=== PATIENT | male | born 1950 | race American Indian/Alaskan Native ===

== ENCOUNTER 2023-07-03 16:41 | Emergency (ER) | payer MEDICARE, SELFPAY ==
--- NOTE | ~2023-07-03 | US_ITS ---
EXAMINATION: US VENOUS ULTRASOUND WITH DOPPLER LOWER EXTREMITY, RIGHT CLINICAL INFORMATION: Pain, swelling and redness. COMPARISON: None available. TECHNIQUE: Ultrasound of the deep veins is performed from the hip to the calf with compression sonography and color and pulse Doppler assessment. Spectral analysis with color-flow imaging is performed. FINDINGS: There is normal venous compression and respiratory variation and augmented flow. The visualized common femoral vein, superficial femoral vein, profunda femoral vein, popliteal vein, and the trifurcation region shows no evidence of deep venous thrombosis. There is no significant popliteal fossa cyst. If the patient's symptoms persist, followup ultrasound in 5 days 7 days might be of value to exclude proximal propagation from a non-visualized calf vein. US/US venous duplex LE RT IMPRESSION: No DVT demonstrated in the right lower extremity.
[2023-07-03 16:47] VITALS: BP 124/83; PULSE 82; RESP 18; TEMP 37; O2SAT 96; BMI 27.3
--- NOTE | 2023-07-03 16:52 | ED.EXTPRO ---
HPI - Extremity Problem General Chief complaint: Extremity Injury, Lower Stated complaint: right foot pain, no injury Time Seen by Provider: 07/03/23 20:35 Source: patient Mode of arrival: ambulatory Limitations: no limitations History of Present Illness HPI Narrative: Patient no significant past medical history no history of gout noticed pain and redness of the right leg for last 4 -5 days painful to touch no fever no chills no history of gout 2 history of similar pain in the past no open wound patient had venous Doppler done prior to my evaluation which was normal Related Data Previous Rx's Medication Instructions Recorded cephalexin 500 mg capsule 500 mg PO QID 10 days #40 caps 07/03/23 doxycycline hyclate 100 mg tablet 100 mg PO BID #20 tabs 07/03/23 ibuprofen 600 mg tablet 600 mg PO Q6-8H PRN pain #30 tabs 07/03/23 Allergies Allergy/AdvReac Type Severity Reaction Status Date / Time No Known Allergies Allergy Verified 07/03/23 16:47 Review of Systems Review of Systems: Yes all other systems are reviewed and are negative [facility] Social History Social History Alcohol intake: unknown Smoked in Last 30 Days: No Use of substances other than those prescribed or required for medical reasons: Unknown Advance Directives: No Advance Directives Information Provided: No Physical Exam Vital Signs: Vital Signs: Last Vital Signs Temp 98.3 F 07/03/23 21:26 Pulse 79 07/03/23 21:26 Resp 17 07/03/23 21:26 BP 109/73 07/03/23 21:26 Pulse Ox 98 07/03/23 21:26 O2 Del Method Room Air 07/03/23 21:26 BMI result Body Mass Index 27.3 Appearance: Alert. Oriented X3. No acute distress. ENT: Pharynx normal. Oral Mucosa moist Neck: Normal inspection. Neck supple. CVS: Normal heart rate and rhythm. Pulses normal. Respiratory: No respiratory distress. Equal air entry bilateral, no wheezing/rales/rhonchi Abdomen: Soft and nontender. Bowel sounds are present, no mass palpable, no CVA tenderness Skin: Skin warm and dry. Normal skin color. Normal skin turgor. Extremities: No lower extremity edema. No calf tenderness swelling of the right leg with erythema Francis sign negative no open wound Neuro: Oriented X 3. No motor deficit. No sensory deficit. Course Course Course Narrative: RME - 72 yo Faroese speaking male presenting to the ER for evaluation of non-trauamtic RLE swelling, redness and pain for the last 4 days. No fever or chills. Plan: Labs and U/S to r/o DVT Medications Administered Discontinued Medications Generic Name Dose Route Start Last Admin Trade Name Freq PRN Reason Stop Dose Admin Cephalexin HCl 500 mg 07/03/23 20:41 07/03/23 21:03 Cephalexin 500 Mg Capsule PO 07/03/23 20:42 500 mg ONCE ONE Administration Doxycycline Monohydrate 100 mg 07/03/23 20:41 07/03/23 21:03 Doxycycline Monohydrate 100 Mg Capsule PO 07/03/23 20:42 100 mg ONCE ONE Administration Ibuprofen 600 mg 07/03/23 20:48 07/03/23 21:03 Ibuprofen 600 Mg Tablet PO 07/03/23 20:49 600 mg ONCE ONE Administration Medical Decision Making Medical Decision Making [facility] Narrative: Patient with redness of the right legs clinically cellulitis venous Doppler was done which was negative bite counts are normal no history of gout or arthritis will give a trial of doxycycline and Keflex Differential Diagnosis Differential Diagnoses: The differential diagnosis associated with the presentation includes Cellulitis/erysipelas/DVT/dependent edema/CHF Lab Data [facility] Lab Attestation statement: I reviewed the patient's lab results. 07/03/23 17:15 07/03/23 17:15 Labs: Lab Results 07/03/23 Range/Units 17:15 WBC 7.0 (4.8-10.8) X10*3/uL RBC 4.69 (4.60-5.80) X10*6/uL Hgb 13.5 L (14.0-18.0) g/dl Hct 41.0 L (42.0-52.0) % MCV 87.4 (80.0-98.0) fL MCH 28.8 (27.0-33.0) pg MCHC 32.9 (31.0-36.0) g/dl RDW 12.3 (11.0-16.0) % Plt Count 233 (160-400) X10*3/uL MPV 9.5 (9.4-12.4) fL Immature Gran % (Auto) 0.4 (0.0-0.4) % Neut % (Auto) 65.7 (45-73) % Lymph % (Auto) 23.7 (20-40) % Bremer % (Auto) 8.8 (2-11) % Eos % (Auto) 1.0 (0-4) % Baso % (Auto) 0.4 (0-2) % Lymph # (Auto) 1.7 (1.2-4.9) X10*3/uL Bremer # (Auto) 0.6 (0.1-1.2) X10*3/uL Eos # (Auto) 0.1 (0.0-0.4) X10*3/uL Baso # (Auto) 0.0 (0.0-0.2) X10*3/uL Abs Immat Gran (auto) 0.03 (0.00-0.03) X10*3/uL Absolute Neuts (auto) 4.6 (2.0-8.3) x10*3/uL Absolute Nucleated RBC 0.000 (0.0-0.012) X10*3/uL Nucleated RBC % (auto) 0.0 (0.0-0.2) /100WBC ESR 25 H (0-15) MM/HR Sodium 141 (135-145) mmol/L Potassium 4.6 (3.3-5.1) mmol/L Chloride 106 (96-108) mmol/L Carbon Dioxide 27 (22-29) mmol/L Anion Gap 13 (12-20) BUN 19 H (9-16) mg/dL Creatinine 1.17 (0.5-1.4) mg/dL Estim Creat Clear Calc 55.3 Estimated GFR > 60 Random Glucose 93 (60-115) mg/dL Calcium 11.0 H (8.4-10.2) mg/dL Magnesium 1.7 (1.6-2.6) mg/dL Total Bilirubin 0.5 (0.0-1.0) mg/dL Direct Bilirubin 0.3 (0.0-0.5) mg/dL AST 33 (5-37) U/L ALT 20 (0-40) U/L Alkaline Phosphatase 69 (39-117) U/L C-Reactive Protein 5.48 H (< or = 0.50) mg/dL Total Protein 7.7 (6.5-8.0) g/dL Albumin 4.4 (3.5-5.0) g/dL Discharge Plan Discharge Clinical Impression: Cellulitis Patient Disposition: Home, Self-Care Instructions: Cellulitis (ED) Additional Instructions: Keep your legs elevated Take antibiotic as prescribed Follow up with PCP if not better Prescriptions: New cephalexin 500 mg capsule 500 mg PO QID 10 Days Qty: 40 0RF doxycycline hyclate 100 mg tablet 100 mg PO BID Qty: 20 0RF ibuprofen 600 mg tablet 600 mg PO Q6-8H PRN (Reason: pain) Qty: 30 0RF Interventions: ED Discharge Assessment Last Done: 07/03/23 21:53 Discharge Date/Time: 07/03/23 21:54 Print Language: Faroese
[2023-07-03 17:21] LABS: MANUAL DIFF FLAG NO
[2023-07-03 17:23] LABS: Basophils Percent Auto 0.4 % (0-2); Eosinophils Absolute Auto 0.1 X10*3/uL (0.0-0.4); Hemoglobin 13.5 g/dl (14.0-18.0); Imm Gran Abs Auto 0.03 X10*3/uL (0.00-0.03); Imm Gran Pct Auto 0.4 % (0.0-0.4); Lymphocytes Absolute Auto 1.7 X10*3/uL (1.2-4.9); Lymphocytes Percent Auto 23.7 % (20-40); Mean Corpuscular HGB Conc 32.9 g/dl (31.0-36.0); Mean Corpuscular Hemoglobin 28.8 pg (27.0-33.0); Mean Corpuscular Volume 87.4 fL (80.0-98.0); Mean Platelet Volume 9.5 fL (9.4-12.4); Monocytes Absolute Auto 0.6 X10*3/uL (0.1-1.2); Monocytes Percent Auto 8.8 % (2-11); Neutrophils Absolute Auto 4.6 x10*3/uL (2.0-8.3); Neutrophils Percent Auto 65.7 % (45-73); Platelet Count 233 X10*3/uL (160-400); Red Blood Count 4.69 X10*6/uL (4.60-5.80); Red Cell Distribution Width 12.3 % (11.0-16.0)
[2023-07-03 17:37] LABS: Alanine Aminotransferase 20 U/L (0-40); Albumin Level 4.4 g/dL (3.5-5.0); Alkaline Phosphatase 69 U/L (39-117); Anion Gap 13 (12-20); Aspartate Amino Transferase 33 U/L (5-37); Bilirubin Direct 0.3 mg/dL (0.0-0.5); Bilirubin Total 0.5 mg/dL (0.0-1.0); Blood Urea Nitrogen 19 mg/dL (9-16); C Reactive Protein 5.48 mg/dL (< or = 0.50); Carbon Dioxide 27 mmol/L (22-29); Chloride 106 mmol/L (96-108); Creatinine Clr Calc Pharmacy 55.3; Estimated Glomerular Filt Rate > 60; Glucose Random 93 mg/dL (60-115); Magnesium 1.7 mg/dL (1.6-2.6); Potassium 4.6 mmol/L (3.3-5.1); Sodium 141 mmol/L (135-145); Total Protein 7.7 g/dL (6.5-8.0)
[2023-07-03 18:29] LABS: Erythrocyte Sedimentation Rate 25 MM/HR (0-15)
--- NOTE | 2023-07-03 20:21 | PC.NURSE ---
Pt called @2019 no answer
[2023-07-03] MEDS: Ibuprofen 600 MG TABLET PO (21:03)
[2023-07-03] MEDS: cephALEXin 500 MG CAPSULE PO (21:03)
[2023-07-03] MEDS: Doxycycline Monohydrate 100 MG CAPSULE PO (21:03)
--- OUTSIDE RECORDS SUMMARY | 2023-07-03 21:23 | XMS_ITS | Continuity of Care Document ---
Author Name Unknown Organization [facility] Address [address] [place] [id number]- Care Team Providers Care Survey Compiler Name Role Phone Francoise Colon Primary Care Physician [place] [facility] [place] [facility] [place] - 05/22/21 [facility] [address] [place] [id number] Attending Physician: Jesu Shirley Admitting Physician: Jesu Shirley Referring Physician: AdmtrJesu Allergies, Adverse Reactions, Alerts Substance Reaction Severity Status NKA Active Medications acetaminophen 325 mg oral tablet 650 mg, By Mouth, Every 4 hours, PRN, Refills 0, Maintenance, Pain , Mild, 02/16/16 12:44:33 Start Date: 02/16/16 Status: Ordered Aspirin Enteric Coated 325 mg oral delayed release tablet 1 tablet = 325 mg, By Mouth, Daily, # 30 tablet, 0 Refills, Maintenance, 02/16/16 12:43:05 Start Date: 02/16/16 Status: Ordered CBC with diff, Chem &, AST, ALT CBC with diff, Chem &, AST, ALT, See Instructions, # 1 each, Refills 0, Tot. Refills 0, Maintenance, Please do weekly x 6 weeks; send results to Dr. Glass ([facility] [place]) and [facility] ([facility], 02/16/16 12:50:34, Compound Start Date: 02/16/16 Status: Ordered cholecalciferol 1000 intl units oral tablet = 1,000 International_Units, By Mouth, Daily, # 30 tablet, 0 Refills, Maintenance, 10/15/15 11:50:12, Tablet Start Date: 10/15/15 Stop Date: 11/14/15 Status: Ordered docusate sodium 100 mg oral capsule 1 capsule = 100 mg, By Mouth, 2 times a day, # 60 capsule, 0 Refills, Maintenance, 10/15/15 11:51:06, Capsule Start Date: 10/15/15 Status: Ordered enalapril 10 mg oral tablet 1 tablet = 10 mg, By Mouth, Daily, Maintenance, 06/03/15 10:32:08, Tablet Start Date: 06/03/15 Status: Ordered Levaquin 750 mg oral tablet 1 tablet = 750 mg, By Mouth, Every 24 hours, for 6 week(s), # 42 tablet, 0 Refills, Acute 03/29/16 12:46:57, 02/16/16 12:46:57, Tablet Start Date: 02/16/16 Stop Date: 03/29/16 Status: Ordered MiraLax oral powder for reconstitution = 17 Gm, By Mouth, Daily, PRN Constipation, dissolve in water before taking, # 255 Gm, 0 Refills, Maintenance, 10/15/15 11:51:25, REC Powder Start Date: 10/15/15 Status: Ordered oxyCODONE 5 mg oral tablet See Instructions, PRN, 1-2 tablets By Mouth Every 4-6 hours, # 60 capsule, Refills 0, Tot. Refills 0, Maintenance, Pain , Moderate, 02/16/16 12:45:11, Instructions Replace Required Details, Print Requisition Start Date: 02/16/16 Status: Ordered rifampin 300 mg oral capsule 1 capsule = 300 mg, By Mouth, 2 times a day, for 6 week(s), Take with food either in AM or PM; May change color of urine to orange/red which is normal, # 84 capsule, 0 Refills, Acute 03/29/16 12:47:27, 02/16/16 12:47:27 Start Date: 02/16/16 Stop Date: 03/29/16 Status: Ordered Synthroid 0.05 mg oral tablet 1 tablet = 50 mcg, By Mouth, Daily, Maintenance, 06/03/15 10:31:46, Tablet Start Date: 06/03/15 Status: Ordered Social History Social History Type Response Smoking Status Never smoker; Tobacc o user in household: No entered on: 11/24/15 Sex
--- OUTSIDE RECORDS SUMMARY | 2023-07-03 21:23 | XMS_ITS | Continuity of Care Document ---
Author Name Unknown Organization [facility] Address [address] [place] [id number]- Care Team Providers Care Personal Loan Specialist Name Role Phone Francoise Colon Primary Care Physician [phone] [place] [facility] [place] - 05/22/21 [facility] [address] [place] [id number] Attending Physician: Not on Staff, Attending MD Referring Physician: Francoise Colon Allergies, Adverse Reactions, Alerts Substance Reaction Severity [...] 6 weeks; send results to Dr. Glass ([facility]) and Dr. Rosas ([facility])., 02/16/16 12:50:34, Compound Start Date: [...]
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
[2023-07-03 21:26] VITALS: BP 109/73; PULSE 79; RESP 17; TEMP 36.8; O2SAT 98
== END 2023-07-03 21:54 | disposition home or self-care (01) ==
PROVIDERS: Physician Assistant; Emergency Provider Internal Medicine
DX: L03.115 Cellulitis of right lower limb (principal); L03.116 Cellulitis of left lower limb; R60.0 Localized edema; Z79.899 Other long term (current) drug therapy
CPT/HCPCS: 36415; 80048; 80076; 83735; 85025; 85652; 86140; 93971; 99284

== ENCOUNTER 2024-03-26 11:31 | Emergency (ER) | payer MEDICARE, SELFPAY ==
[2024-03-26 11:42] VITALS: BP 127/89; BP 134/76; PULSE 72; PULSE 76; RESP 20; TEMP 36.6; O2SAT 95; O2SAT 98; BMI 29.9
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
[2024-03-26 15:26] VITALS: BP 135/75; PULSE 85; RESP 20; TEMP 36.6; O2SAT 100
== END 2024-03-26 15:27 | disposition home or self-care (01) ==
PROVIDERS: Emergency Provider Emergency Medicine; PCP Physician Assistant
DX: S09.90XA Unspecified injury of head, initial encounter (principal); M54.50 Low back pain, unspecified; R51.9 Headache, unspecified; W05.1XXA Fall from non-moving nonmotorized scooter, initial encounter; Y93.9 Activity, unspecified; Y92.410 Unspecified street and highway as the place of occurrence of the external cause; Y99.8 Other external cause status
CPT/HCPCS: 99283; 99284

== ENCOUNTER 2024-11-06 10:39 | Emergency (ER) | payer OTHER, SELFPAY ==
--- NOTE | ~2024-11-06 | CT_ITS ---
EXAMINATION: CT CERVICAL SPINE WITHOUT CONTRAST CLINICAL INFORMATION: Fall, head strike. COMPARISON: None available. TECHNIQUE: Axial 3 mm thin and reformatted 2 mm thin sagittal and coronal images of cervical spine were obtained. This CT examination was performed using dose optimization techniques as appropriate, variously including the following: *Automated exposure control *Adjustment of mA and/or kV according to patient size (this includes techniques or standardized protocols for targeted exams where dose is matched to indication/reason for exam; i.e. extremities or head) *Use of iterative reconstruction technique DLP: 1033 mGy/cm. FINDINGS: On sagittal reconstructed images there is maintained cervical lordosis. The vertebral heights, alignment and disc heights are normal. The craniovertebral junction and C1-C2 alignment is normal. There is no visible acute fracture, dislocation or subluxation. There is mild bilateral C3-4 moderate left C4-5, right C5-6 facet joint arthropathy and hypertrophy. There is mild left C3-4, C4-5 and bilateral C5-6 neural foraminal narrowing. The tracheal airway is widely patent. The prevertebral soft tissues are normal. Thyroid lobes are symmetrical and normal. The lung apices are clear CT/CT cervical spine wo IV con IMPRESSION: No acute fracture or dislocation cervical spine. Mild DJD. Fleischner guidelines were followed. Electronically signed by: Danyel Canales MD 11/06/2024 01:11 PM [facility]OE
--- NOTE | ~2024-11-06 | XR_ITS ---
Examination: Right hip and AP pelvis. 3 views. CLINICAL INDICATION: Pain. COMPARISON: None. FINDINGS: AP pelvis: There is a right intramedullary femoral janelle and 2 screws traversing the femoral neck stabilizing old healed fracture. There is no recurrent fracture seen involving the right hip. The left hip and the visualized rest the pelvis is unremarkable. Incidental finding of mild DJD L4-5 disc level. Right hip: There is a short intramedullary femoral janelle and 2 screws through the right femoral neck stabilizing the janelle and femoral neck fracture. There is no periprosthetic fracture. No dislocation. No loose bodies. No joint effusion or soft tissue swelling. XR/XR hip RT w PEL 1V IMPRESSION: Unremarkable right hip exam. The hardware is stable. The pelvic exam is unremarkable. Electronically signed by: Danyel Canales MD 11/06/2024 11:41 AM [facility]
--- NOTE | ~2024-11-06 | CT_ITS ---
EXAMINATION: CT HEAD WITHOUT CONTRAST CLINICAL INFORMATION: Fall, head strike COMPARISON: None available. TECHNIQUE: Contiguous axial imaging was performed from the skull base to vertex without intravenous administration of contrast. This CT examination was performed using dose optimization techniques as appropriate, variously including the following: *Automated exposure control *Adjustment of mA and/or kV according to patient size (this includes techniques or standardized protocols for targeted exams where dose is matched to indication/reason for exam; i.e. extremities or head) *Use of iterative reconstruction technique DLP: 1033 mGy/cm FINDINGS: There is no acute intra-axial, extra-axial bleed, collection or midline shift. No acute infarction in evolution seen. The dotson to white matter differences maintained normal. The lateral ventricles are symmetrical in size and appears normal for patient's age. No abnormality seen in the posterior fossa. Bone windows reveal no calvarial abnormality. Bilateral paranasal sinuses and mastoid air cells are well-aerated. There is mild deviation of nasal septum to the right there is no scalp soft tissue abnormality seen. CT/CT head/brain wo IV con IMPRESSION: No acute intracranial process seen. Electronically signed by: Danyel Canales MD 11/06/2024 01:23 PM [facility]
--- NOTE | 2024-11-06 10:54 | ED_ITS ---
HPI - Fall General Chief Complaint: Fall Stated Complaint: [facility] FALL,-HS,-LOC,-THIN, PER EMS Time Seen by Provider: 11/06/24 10:53 Source: patient and RN notes reviewed Mode of arrival: EMS Limitations: no limitations History of Present Illness ED Provider: Elva Crawley PA-C HPI Narrative: This is a 73-year-old Marshallese-speaking male, with a history of hypertension, gout, low back pain, who presents emergency department via EMS after mechanical fall which occurred just prior to arrival. Patient was at the [id number] playing pool when he was saying hello to oneof his friends who is in a wheelchair, and his foot got stuck in a wheelchair, and he ultimately fell onto his right hip. He is unsure if he hit his head. Denies LOC. 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 He is not on anticoagulation. Denies any current headache, dizziness, blurred vision, neck pain, chest pain, shortness of breath, abdominal pain, nausea, vomiting or diarrhea. No other complaints or concerns at this time. complaint: fall Onset (ago): hour(s) Fall from: standing Fall witnessed: yes, by bystander Place fall occurred: other ([facility]) Loss of consciousness: none Prolonged down time: minute(s) Symptoms prior to fall: none Context: tripped/slipped Severity: moderate Quality: aching Associated symptoms (after fall): denies Related Data Previous Rx's ?Medication ?Instructions ?Recorded cephalexin 500 mg capsule 500 mg PO QID 10 days #40 caps 07/03/23 doxycycline hyclate 100 mg tablet 100 mg PO BID #20 tabs 07/03/23 ibuprofen 600 mg tablet 600 mg PO Q6-8H PRN pain #30 tabs 07/03/23 Allergies Allergy/AdvReac Type Severity Reaction Status Date / Time No Known Allergies Allergy Verified 11/06/24 11:06 Review of Systems Review of Systems: Yes all other systems are reviewed and are negative Constitutional: Constitutional: Reports as per [facility] Social History Social History Alcohol intake: unknown Advance Directives: No Advance Directives Information Provided: Yes Physical Exam Vital Signs: Vital Signs: Last Vital Signs Temp 97.7 F 01/22/25 14:24 Pulse 68 11/06/24 14:24 Resp 18 11/06/24 14:24 BP 150/87 H 11/06/24 14:24 Pulse Ox 100 11/06/24 14:24 O2 Del Method Room Air 11/06/24 14:24 BMI result Body Mass Index 26.9 Const: General: cooperative, comfortable and no acute distress Orientation/consciousness: patient oriented x3 Limitations: no limitations HEENT: Head: Yes normal to inspection, Yes normocephalic and Yes atraumatic Ears: hearing grossly normal bilaterally General nose exam: Normal external nose present Face and sinus: Yes normal facial exam Mouth: Normal oral and palatal mucosa present, oropharynx normal and moist mucous membranes Throat: Yes posterior oropharynx normal Eyes: General: appearance normal, both eyes and all related structures Eyelids: Yes eyelids normal Conjunctivae: conjunctivae normal Sclerae: sclerae normal Pupils: Equal, round and reactive pupils present EOM: EOMs intact bilaterally Neck: Other: No midline spine tenderness on examination. Full ROM. Neck: Yes normal visual inspection, Yes full ROM and Yes no lymphadenopathy Lymphatic: no lymphadenopathy noted Chest: Chest palpation & inspection: normal inspection of the chest Resp: Effort & Inspection: normal respiratory effort and able to speak in complete sentences Auscultation: clear to auscultation bilaterally, no crackles, no rales, no rhonchi and no wheezes Cardio: Rate: regular rate Rhythm: regular rhythm Heart sounds: S1 normal heart sound present and S2 normal heart sound present GI: Other: Abdomen is soft, nontender, nondistended Inspection: Yes normal to inspection Skin: General skin exam: no rashes or lesions noted Trauma: no lacerations or abrasions Wounds: no wounds Neuro: General: patient oriented x3 and moves all extremities Cranial nerves: Yes CN's II-XII intact bilaterally and Yes Equal, round and reactive pupils present Cognition (Neuro): normal cognition Motor exam (neuro): 5/5 motor strength present throughout Extrem: Other: Mild tenderness palpation along the anterior-posterior hip. No overlying ecchymosis seen. General: Yes normal to inspection Right upper extremity: normal to inspection Left upper extremity: normal to inspection Right lower extremity: normal to inspection Left lower extremity: normal to inspection Course Reevaluation(s) Reevaluation #1: CT head and neck and xray hip unremarkable for any acute findings. Discussed with patient. Stable for d/c. Time: 13:53 Medications Administered Discontinued Medications Generic Name Dose Route Start Last Admin Trade Name Kenyatta PRN Reason Stop Dose Admin Acetaminophen 650 mg 11/06/24 11:10 11/06/24 11:20 Acetaminophen 325 Mg Tablet PO 11/06/24 11:11 650 mg ONCE ONE Administration Medical Decision Making Medical Decision Making [facility] Narrative: This is a 73-year-old male who presents emergency department for evaluation of mechanical fall which occurred just prior to arrival. Patient accidentally tri pped on a friend's wheelchair, and landed onto his right hip. On arrival, blood pressure mildly elevated at 160 4/85, all other vital signs within normal limits. He is neurologically intact, no focal deficits on examination. He is only complaining of right hip pain. He is not on anticoagulation. Given age, will obtain CT head and neck. He is unsure if he hit his head. He has no cervical midline spine tenderness, he arrived in cervical collar which was removed given no midline spine tenderness. Plan: CT head, neck and right hip x-ray, will continue to closely monitor Differential Diagnosis Differential Diagnoses: The differential diagnosis associated with the presentation includes ICH, SDH, hip fracture, dislocation, C-spine fracture-unlikely, closed head injury Radiology Impression Discussion of test interpretation with radiology: I have reviewed the radiologist's reading. Radiologist Impression: CT/CT cervical spine wo IV con IMPRESSION: No acute fracture or dislocation cervical spine. Mild DJD. Fleischner guidelines were followed. Electronically signed by: Danyel Canales MD 11/06/2024 01:11 PM EST RP Dictated By: Danyel Canales MD Signed By: <Electronically signed CT/CT head/brain wo IV con IMPRESSION: No acute intracranial process seen. Electronically signed by: Danyel Canales MD 11/06/2024 01:23 PM EST RP XR/XR hip RT w PEL 1V IMPRESSION: Unremarkable right hip exam. The hardware is stable. The pelvic exam is unremarkable. Electronically signed by: Danyel Canales MD 11/06/2024 11:41 AM EST RP Dictated By: Danyel Canales MD Discharge Plan Discharge Clinical Impression: Contusion of hip, right Patient Disposition: Home, Self-Care Instructions: Hip Contusion (ED) Additional Instructions: You were seen in the emergency department for hip pain after a fall. Your x-ray does not show any abnormalities. Your head CT and neck CT did not show any new injury. Please rest, drink plenty of fluids, and follow-up with your primary care physician. You may be sore for several days, you may take Tylenol as needed. If any new or worsening symptoms occur including but not limited to severe headache, dizziness, blurred vision, chest pain, please seek emergent care. Prescriptions: No Action cephalexin 500 mg capsule 500 mg PO QID 10 Days Qty: 40 0RF doxycycline hyclate 100 mg tablet 100 mg PO BID Qty: 20 0RF ibuprofen 600 mg tablet 600 mg PO Q6-8H PRN (Reason: pain) Qty: 30 0RF Interventions: ED Discharge Assessment Last Done: 11/06/24 14:24 Discharge Date/Time: 11/06/24 14:25 Print Language: [place]
[2024-11-06 11:03] VITALS: BP 144/70; BP 164/85; PULSE 69; PULSE 76; RESP 16; TEMP 36.5; O2SAT 95; O2SAT 98; BMI 26.9
[2024-11-06] MEDS: Acetaminophen 325 MG TABLET 650 MG PO (11:20)
[2024-11-06 13:06] VITALS: BP 150/87; PULSE 68; RESP 18; TEMP 36.5; O2SAT 100
--- OUTSIDE RECORDS SUMMARY | 2024-11-06 13:37 | XMS_ITS | Clinical Summary ---
Author Organization [facility] Address [address] [place] [address] Care Team Providers [facility] [employer] Name Role Phone Francoise Wong PA-C Primary Care Provider [phone] Source Comments PLEASE NOTE, if this patient is a minor, it may be UNLAWFUL to discuss sensitive information that is contained in these records (such as FAMILY PLANNING, MENTAL HEALTH or SUBSTANCE ABUSE) with the minor patient's parent or other person without the patient's specific authorization.[facility] Allergies No known active allergies Medications miscellaneous medical supply miscIndications:Palma mbar disc disease by miscellaneous route once daily Disp1, lifetime need, dx lumbar disc disease, LUMBAR support belt 1 Each 03/13/20 20 Active acetaminophen (TYLENOL 8 HOUR) 650 mg CR tabletIndications: Primary osteoarthritis involving multiple joints Take 1 Tablet by mouth 3 (three) times daily 270 Tablet 3 07/05/20 22 Active blood pressure monitorIndications :Essential hypertension, benign Dispense one automated BP monitor, to be used daily and prn, length of need 99 years 1 Kit 1 12/28/19 23 Active ibuprofen 600 mg tabletIndications: Chronic osteomyelitis (HCC-CMS) Take 1 Tablet by mouth 4 (four) times daily as needed for pain 180 Tablet 3 07/11/20 23 Active MISCELLANEOUS MEDICAL SUPPLY MISC by miscellaneous route daily. Semi electric recliner, disp1, lifetime need, dx low back pain 1 Each 08/04/20 23 Active enalapril (VASOTEC) 10 mg tabletIndications: Essential hypertension, benign Take 1 Tablet by mouth once daily 90 Tablet 2 04/25/20 24 Active levothyroxine 75 mcg tabletIndications: Hypothyroidism (acquired) TAKE 1 TABLET BY MOUTH DAILY 90 Tablet 3 07/08/20 Active diclofenac sodium (VOLTAREN) 1 % gelIndications:Art hritis of right knee Apply 4 gm QID 500 g 6 07/16/20 Active MISCELLANEOUS MEDICAL SUPPLY MISCIndications:Ve nous insufficiency 3 pair compression stockings, black, 10-15 mmhg, for lifetime use DX code I87.2/venous insufficiency 3 Each 1 07/16/20 Active Active Problems Patient Care Coordination No te Formatting of this note migh t be different from the original. Rosy Rojas RN Case Manager [phone] Aimee TongI=social work professor/geriatric specialist [phone] Problem Noted Date Diagnosed Date History of femur fracture 07/16/2024 Overview (09/09/2024): Result type: Progress Note Hospital Result date: June 03, 2024 9:29 EDT Result status: Auth (Verified) Result title: Progress Note Performed by: Huma Mcallister MD on June 03, 2024 9:32 EDT Verified by: Huma Mcallister MD on June 03, 2024 9:32 EDT [id number][place] [facility] [place] - 06/04/2024 Patient: KISHOR ZALDIVAR Age: 73 Years Sex: Male : 1950 Subjective Seen and examined at bedside. Noneventful overnight. Postoperative day 1. Hemoglobin count stable. IV magnesium replaced. Review of Systems Constitutional: No fever. RS: Denies any cough or SOB. CVS: Denies any chest pain, palpitations, orthopnea GI: Denies any nausea, vomiting, Neuro: No headache, disorientation or focal muscle weakness. Musculoskeletal: No joint pain or low back pain Psych: no depression Objective Vital Signs Temperature: 98.3 DegF (06/03/24 08:00:00) Temperature Route: Oral (06/03/24 08:00:00) Pulse Rate: 87 bpm (06/03/24 08:00:00) Heart Rate Monitored: 85 bpm (06/02/24 12:45:00) Respiratory Rate: 18 br/min (06/03/24 08:17:00) Systolic Blood Pressure: 124 mm Hg (06/03/24 08:00:00) Diastolic Blood Pressure: 73 mm Hg (06/03/24 08:00:00) Blood pressure sites: Arm, left (06/03/24 08:00:00) Mean Arterial Pressure: 83 mm Hg (06/02/24 23:41:00) Pulse Pressure: 52 mm Hg (06/02/24 23:41:00) Oxygen Saturation: 91 % Low (06/03/24 08:00:00) Liters per Minute: 2 L/min (06/02/24 12:45:00) Mode of Delivery (Oxygen): Room air (06/03/24 08:00:00) Early Warning Score: 2 (06/03/24 08:47:03) Physical Exam General: Lying comfortably in bed,no evident distress Cardiac: S1 + S2 + 0, no murmurs heard Respiratory: CTA, No wheezes, Rales or crackles heard Abdomen: soft, nondistended, nontender Extremities: No edema or cyanosis present Neurological: AO X3,cranial nerves grossly normal Results Test Name Test Result Date/Time WBC 7.4 k/mm3 06/03/2024 00:54 EDT RBC 4.48 m/mm3 06/03/2024 00:54 EDT Hgb 12.9 Gm/dL 06/03/2024 00:54 EDT Hct 39.4 % 06/03/2024 00:54 EDT MCV 87.9 femtoliters 06/03/2024 00:54 EDT MCH 28.8 pg 06/03/2024 00:54 EDT MCHC 32.7 g/dL 06/03/2024 00:54 EDT Platelet Count 162 k/mm3 06/03/2024 00:54 EDT RDW-SD 40.6 femtoliters 06/03/2024 00:54 EDT Sodium 138 mmol/L 06/03/2024 00:54 EDT Potassium 4.7 mmol/L 06/03/2024 00:54 EDT Chloride 104 mmol/L 06/03/2024 00:54 EDT Bicarbonate Level 21 mmol/L 06/03/2024 00:54 EDT Anion Gap 13 06/03/2024 00:54 EDT Glucose Level 104 mg/dL 06/03/2024 00:54 EDT BUN 21 mg/dL 06/03/2024 00:54 EDT Creatinine-Blood 1.01 mg/dL 06/03/2024 00:54 EDT Estimated GFR Creatinine 78 ML/MIN/1.73 M2 06/03/2024 00:54 EDT Magnesium 1.5 mg/dL 06/03/2024 00:54 EDT Assessment/Plan 73-year-old male presented to the emergency room after a fall at home.He tells me that he was on his couch and got up and then lost balance falling to the ground. He denied any head strike, chest pain, syncope. He did have right hip pain after the event and was brought to the hospital where he was found to have a right intertrochanteric fracture. He was admitted for orthopedic evaluation and possible repair. Fall (W19.XXXA): . Femur fracture (S72.90XA): Orthopedics have evaluated the patient. POD day 1 s/p Right short CMN. postoperative hemoglobin count is stable. Labs reviewed. Physical therapy evaluation. Scheduled Tylenol and as needed oxycodone. For pain. Subcu Lovenox for DVT prophylaxis. Hypothyroid (E03.9): Continue levothyroxine Hypertension (I10): Will hold lisinopril this morning in anticipation of surgery blood pressure stable. Lisinopril can be resumed on discharge VTE Prophylaxis: Subcu Lovenox Code Status: Full code May 2024- went to rehab after Peripheral neuropathy 07/05/2022 History of COVID-19 01/202008/27/2021 Lumbar disc disease 08/15/2017 Chronic neck pain 09/14/2016 Primary osteoarthritis involving multiple joints 07/29/2015 Essential hypertension, benign 03/12/2015 Hypothyroidism (acquired) 03/12/2015 Pain of left fibula 02/201503/12/2015 Overview (03/12/2015): CR Tibia Fibula LT 2 View - 02/23/15 - 1443 History: Left leg pain and draining wound. Findings: 2 views of the left tibia and fibula demonstrate no acute fracture or dislocation. There is postoperative changes proximal left tibia with lateral plate and multiple screws traversing healed fracture in anatomic alignment. There is periosteal reaction within the midshaft of the left fibula. Impression: Periosteal reaction midshaft left fibula. Osteomyelitis not excluded. Postoperative changes proximal left tibia. Consider 3 phase bone scintigraphy to further assess. [id number] Dictating Physician: BERNARDO SAEED MD Electronically Signed by: BERNARDO SAEED MD Dic Date/Time: 02/23/151512 Sign date/Time: 02/23/151515 Resolved Problems Problem Noted Date Diagnosed Date Resolved Date COVID-19 02/10/2020 08/27/2021 Overview (02/20/2020): COVID-19 Tracking [reviewed or updated 02/20/2020] ? ? Exposure to confirmed case or travel risk - No ? ? Date that symptoms began - ? ? Patient risk factors for severe COVID-19: Age >64 ? ? Healthcare worker or waiter/waitress first class? No ? ? COVID-19 Tested? - Yes - Date Tested 02/10/20 Testing Location - Other [facility] - Testing Results - Positive ? ? Is patient ? No Osteomyelitis of anterior ti layla, chronic, NEOS surgery 06/08/[address] Trevor Rosas 03/12/2015 07/16/2024 Overview (07/14/2015): Result type: Consultation Note Result date: 11 July 2015 1:18 Result status: Auth (Verified) Result title: Consultation Performed by: Gianluca Cortes on 11 July 2015 1:18 Verified by: Gianluca Cortes on 11 July 2015 7:47 Encounter info: [id number], [facility], Disch ES, 07/10/2015 - 07/11/2015 Contributor system: [facility] Consultation (Verified) CONSULTATION DATE:07/10/2015 [facility] CONSULT[facility] REQUESTING PHYSICIAN: Luis Quintero M.D. CONSULTING PHYSICIAN: Desmond Calvert M.D. HISTORY OF PRESENT ILLNESS: Mr. Vazquez is a 64-year-old Colombian only speaking gentleman who presents to the emergency room with a left leg drainage and swelling. The patient's history reviewed through [facility] and through director medical economics at [facility] translating services, reports he has had status post tibial plateau ORIF in [place] 4 years ago, developed a chronic open wound in the anterior aspect of the left leg and painful hardware. He was taken to the operating room by Dr. Rosas. His operative note was reviewed, which demonstrate on 06/08/15 he underwent a removal of hardware screws through lateral incisions and then debridement of open wound with exposed tibia which was curetted and cultured. At the time of the operation, cultures did show 4+ Staphylococcus aureus sensitive to Bactrim. The patient was discharged on 06/09/15 with wet-to-dry dressing changes for the wound secondary intention to grow in and was placed on Bactrim, which he was given 2 weeks supply for. The patient is currently on wet-to-dry dressings, comes in today, has been off antibiotics for now 2 weeks with some mild drainage, but states that through the wound itself it seems to be closing and is smaller than it was at the time of surgery. We were consulted regarding management of this injury at this time. PAST MEDICAL HISTORY, MEDICATIONS, ALLERGIES, REVIEW OF SYSTEMS: All updated per ER documentation. PHYSICAL EXAMINATION: Vital Signs: Today, patient is afebrile 98.3, blood pressure high 135/87, pulse 75 and O2 sat is 99%. Extremities: Inspection today demonstrates there are 2 lateral incisions. Steri-Strips were removed today. Wounds are healed nicely, very good. He has got a granulating wound on the central portion of his tibia. There is exposed tibia. The surrounding areas are mildly erythematous. There is no evidence of descending or ascending cellulitis. He does have some localized erythema. The patient can plantar flex and dorsiflex. The knee is without effusion. It does not appear to be actively involved. There is a small amount of serosanguineous drainage. It does have some mild odor to it present. LABORATORY DATA: Ordered at this time demonstrates a normal white count of 7.1, sed rate 32. C-reactive protein 1.4, which is trending down from 5.3 at the time of surgery. IMPRESSION: Chronic wound infection, left leg, status post removal of painful hardware, retained hardware, left leg, but did not see any signs or symptoms that would warrant hospitalization or surgical debridement. PLAN: The patient has scheduled followup care with Dr. Rosas next week. I have recommended he may indeed require continued wet-to-dry dressing changes. I am going to put him back on Bactrim DS which the Staph was sensitive to. He will remain on this until follow up with Dr. Rosas. Potential need for [facility] Care [facility]. Supplement was discussed an outpatient basis, but would not recommend hospitalization at this time. He certainly is not septic or sick nor requiring surgical management in my opinion. Dictated by: Gianluca Springer PA-C Signing Clinician: Desmond Calvert M.D. Dictated: 07/11/2015 01:18:42 Transcribed: 07/11/2015 02:07:04 Transcribed by: ANDREA DocID: [id number] PRELIMINARY REPORT UNLESS MANUALLY/ELECTRONICALLY SIGNED CC:Extra Copy , Luis Quintero M.D. [facility] [place] [facility] , Gianluca Springer PA-C [address] [place] [id number] Desmond Calvert M.D. [facility], [address], [id number] [place] [id number] A Member of the [facility] History and Physical Name: KISHOR VAZQUEZ Admit Date: 02/23/15 - 1950/ 64yr Discharge Date: Location: [place] [address] Report #: [id number] Dictating Physician: FORTINO MARSHALL PRIMARY CARE PHYSICIAN: None in the area. CHIEF COMPLAINT: Left lower extremity pain and chronic drainage from the anterior aspect of the left chaney. HISTORY OF PRESENT ILLNESS: Mr. Zaldivar is a very nice 54-year-old gentleman, although a very poor historian who presented to the hospital complaining of pain and drainage from the left anterior chaney which has become a subacute issue. The patient states he was in his usual state of health until the end of 2013 when he started having swelling of his left lower extremity. At the beginning of 10/2014 the patient presented to [facility] in [place], [place] complaining of this pain and swelling. The patient was diagnosed with cellulitis. He was treated for a week in the hospital and discharged. However, at that point his history becomes difficult to understand but he did not feel improvement and he ended being diagnosed with an infection in the bone . He had studies in the bone that demonstrated infection and he was given approximately 40 days of IV antibiotics 2 times a day by an [employer] company. After that the patient was deemed to be cured from the infection in the bone and after that the patient about 2 weeks ago started having some drainage coming out of the upper aspect of the anterior chaney. The patient was then prescribed Augmentin for 10 days that he finished a few days ago. I called to the patient's pharmacy in [place] and he was prescribed the Augmentin for 10 days on 02/06/15. The patient did not feel much improvement and he had plans to come to live in this area decided to move. Before he came to [place] he had a fall the day before his flight and hit precisely around the area of the drainage. It became more painful and indurated. He had finished his treatment by then and he flew to this area on 02/17/15 or 02/18/15 and ever since the patient has been only taking ibuprofen for his pain. The patient decided to go to the ER because he continues to have drainage, sometimes purulence coming from that area. The patient denies any fever, chills, sweats, any weight loss or weight gain and no worsening of the erythema in that area. The patient was in the ER where he was complaining mainly of pain and he was given pain medication and he was found to have an area suspicious of cellulitis with drainage which was cultured and the patient was admitted with question of cellulitis and osteomyelitis given the abnormal x-ray done of the leg which shows some periosteal reaction. The patient was admitted on IV antibiotics and pain medications. Of note the patient denies any acute changes of his condition. He does not have any providers in the area and was the persistent pain what prompted him to come, otherwise no acute changes have been observed. PAST MEDICAL HISTORY: Significant for: 1. A fall with a fracture of the proximal tibia and fibula which underwent ORIF around 4 years ago 2. Hypertension 3. Hypothyroidism 4. Chronic back pain with multiple disc herniations per himself which led to disability MEDICATIONS: 1. Enalapril 10 mg p.o. daily 2. Levothyroxine 50 mcg p.o. daily 3. The patient was on Augmentin from 02/06/15 for 10 days and the patient was on Septra prescribed on 11/03/14 for 7 days after that the patient was on IV antibiotics that I could not get to know which exactly he had. REVIEW OF SYSTEMS: A 12-organ review system was conducted and negative other than stated above and his chronic back pain and shoulder pain. ALLERGIES: The patient has no known drug allergies. 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 The patient is a lifelong nonsmoker, nondrinker and denies any illicit drugs. The patient is and he is here with his and has a daughter in the area as well who he wants to be his healthcare proxy. FAMILY HISTORY: His mother was diabetic and from complications and he does not know anything about his father; otherwise noncontributory. CODE STATUS: The patient wants to be full code. PHYSICAL EXAMINATION: Temperature 36.4, heart rate 74, blood pressure 148/99, O2 sat 97% on room air. The patient is a well-developed white male who is not in acute distress. His mouth is moist. His eyes with PERRLA, EOMI. No jaundice. The neck is supple. No JVD. The lungs are clear to auscultation bilaterally. The heart is regular in rhythm and rate. No murmur, no gallop, no rubs. The abdomen is mildly obese, soft, nontender, nondistended with normal bowel sounds. Extremities without clubbing, cyanosis or edema. The patient has an area of fluctuance in the proximal end of the anterior aspect of the tibia which is draining some fluid, upon expression, it shows some purulence coming out in a small amount. The patient has some shiny appearance of the skin around this lesion and multiples scabs from his recent fall. There is some erythema around it but there is no warmth or tenderness. It is mildly painful when I press to release the drainage. Distally the extremities with normal pulses and he has a palpable hardware in the proximal end of the tibia as well in the same side. Neurologically the patient is grossly intact. He is ambulatory and his behavior is normal. LABORATORY DATA: His workup shows a completely normal CBC with a normal sed rate, chemistry which shows normal electrolytes and renal function. CRP is just mildly elevated at 0.8. His glucose is normal. He had an x-ray of the tibia and fibula in the left side which shows periosteal reaction in the mid shaft of the left fibula, osteomyelitis not excluded and there are postoperative changes in the proximal left tibia. He also has a venous Doppler in that same leg which shows no evidence of DVT from the femoral-popliteal system to the lower extremity. ASSESSMENT AND PLAN: This is a very nice who has been dealing with a nonhealing wound with chronic drainage and presumably treated for osteomyelitis for almost 6 weeks and who seems to have recurrence of his chronic infection. The patient has no systemic symptoms. He is not septic and I am not convinced that the patient has a significant cellulitis in that area. The plan at this moment is going to be delineated below. 1. Probable osteomyelitis plus/minus mild cellulitis. The patient was provided with IV vancomycin in the ER. He has received antibiotics a few days ago and he has not noticed any significant change. At this time I will hold on any antibiotics. The patient needs a consultation by Infectious Disease and I asked the patient to call his family to bring all the studies from the hospital that he states he brought from [place]. With this information we can call the [facility] where his primary care provider works and investigate what antibiotics he had and what diagnostic tests he had. For the time being I do not think that bone scan is going to make any significant change in the plan overnight and I will await for the Infectious Disease Service recommendations. I will await for the cultures done in the ER which seems to be showing some gram positive cocci in the Gram-stain which is expected given the purulence noticed in the drainage. It seems that these issues are rather chronic than acute and will need plan to be managed as an outpatient. The patient needs to be seen by the financial counselor to start his application for insurance in this area as soon as possible in order to arrange management as an outpatient. Patient has surgical hardware in close proximity to the affected area. 2. Hypertension. The patient will continue his usual enalapril, no changes were made. 3. Hypothyroidism. The patient will continue on his levothyroxine. DVT ppx with SQ heparin Fortino Linda MD Job ID: [id number].doc Immunizations Name Administration Dates Next Due Flu, Cell Culture based, Pre servative Free, 6m+, Flucelvax 08/08/2017 Flu, High Dose, 65y+, Fluzone High Dose 01/05/20 23,08/11/2020 Flu, Preservative Free 07/11/2023 INFLUENZA, SEASONAL, INJECTABLE 08/08/2017 Influenza (FLUZONE), high-do se, trivalent, PF 07/16/2024,09/18/2018,08/22/2018 Moderna COVID-19 Vaccine, re d cap blue label, 12+ Primary Series 02/06/2021,01/08/2021 PFIZER COVID VACCINE, PURPLE CAP, 12+ 10/20/2021 PNEUMOCOCCAL CONJUGATE PCV 13 12/14/2018 PPD 06/27/2017 Pfizer COVID-19 (Comirnaty), Mrna, Lnp-s, Pf, Nilesh-sucrose, 30 Mcg/0.3 Ml, 12yr+ 07/16/2024 Pfizer-BioNTech COVID-19 Vac cine Bivalent, (BOWEN PFIZER-BIONTECH COVID-19 VACCINE BIVALENT, (BOWEN CAP 08/15/2022 TDAP 06/06/2018 ZOSTER VACCINE, RECOMBINANT (SHINGRIX) 0,08/11/2020 Family History Medical History Relation Name Comments Alcohol/Drug Abuse Father Diabetes Mother No Known Problems Sister Relation Name Status Comments Father Mother Sister Alive Social History Tobacco Use Types Packs/Day Years Used Date Smoking Tobacco: Never Smokeless Tobacco: Never Tobacco Cessation:Counseling Given: Not Answered Alcohol Use Standard Drinks/Week Comments No 0 (1 standard drink = 0.6 oz pur e alcohol) Social Connections Answer Date Recorded Connectedness 0 08/27/2021 Financial Resource Strain Answer Date R ecorded Financial Resource Strain 0 2020 Stress Answer Date Recorded Stress 0 08/27/2021 Physical Activity Answer Date Recorded Physical Activity 0 06/09/2019 Food Insecurity Answer Date Recorded Food 0 08/27/2021 Transportation Needs Answer Date Record ed Transportation 0 08/27/2021 Housing Stability Answer Date Recorded Housing 0 08/27/2021 Safety and Environment Answer Date Anuj rded Safety 0 06/09/2019 Utilities Answer Date Recorded Utilities 0 08/27/2021 Employment Answer Date Recorded Stress 0 01/03/2022 Sex and Gender Information Value Date Recorded Sex Assigned at Male 08/15/2017 7:50 AM PDT Legal Sex Male 5:57 AM PDT Gender Identity Male 08/15/2017 7:50 AM PDT Sexual Orientation Straight 10/15/2019 7: 11 AM PST Last Filed Vital Signs Vital Sign Reading Time Taken Comments Blood Pressure 122/80 07/16/2024 2:30 PM EDT Pulse 78 07/16/2024 2:30 PM EDT Temperature 36.7 ??C (98 ??F) 07/16/2024 2:30 PM EDT Respiratory Rate 16 07/16/2024 2:30 PM EDT Oxygen Saturation 98% 07/11/2023 1:10 PM EDT Inhaled Oxygen Concentration - - Weight 81.2 kg (179 lb) 07/16/2024 2:30 PM EDT Height 167.6 cm (5' 6 ) 07/16/2024 2:30 PM EDT Body Mass Index 28.89 07/16/2024 2:30 PM EDT Plan of Treatment Upcoming Encounters Date Type Department Care Team (Late st Contact Info) Description 11/27/2024 2:00 PM EST Office Visit [facility] [address] [place] [phone] Francoise Wong PA-C [address] [place] [phone] Health Maintenance Due Date Last Done Comments CT Colonography 1993 Colonoscopy 1993 Colorectal Cancer Screening 1993 FIT/gFOBT 1993 Fecal DNA 1993 Flexible Sigmoidoscopy 1993 Depression Annual Screen 10/16/2024 024, 07/11/2023, 03/12/2015 Tobacco Screening 04/10/2025 04/10/2024 Falls Prevention 07/16/2025 07/16/2024, , 08/16/2021 Medicare Annual Wellness Visit 07/16/2025 1 , 07/11/2023, 07/11/2023, Additional history exists TSH Monitoring 07/16/2025 07/16/2024, 06/17, 07/05/2022, Additional history exists Diabetes Screening 07/31/2025 07/31/2024, 1 , 07/16/2024, Additional history exists Lipid Screening 07/16/2027 07/16/2024, 06/17, 07/05/2022, Additional history exists Hepatitis C Screening Completed 06/06/2018 Imm-DTaP/Tdap/Td Discontinued 06/06/2018 Imm-Pneumococcal 65+ Discontinued 12/14/2018 Imm-Zoster, Recombinant Completed 10/12/2020, 08/11 Alcohol and Drug Screen Discontinued 07/05/20, 08/27/2021, 08/16/2021, Additional history exists [id number] Completed 07/16/2024, 07/18, 10/20/2021, Additional history exists Imm-Influenza Discontinued 07/16/2024, 06/17, 01/04/2023, Additional history exists Procedures Procedure Name Priority Date/Time Associated Diagnosis Comments OTHER ORDERS SCANNED DOCUMENT 09/25/2024 3:00 AM EST OTHER ORDERS SCANNED DOCUMENT 09/19/2024 3:00 AM EST OTHER ORDERS SCANNED DOCUMENT 08/23/2024 3:00 AM EST OTHER ORDERS SCANNED DOCUMENT 08/15/2024 3:00 AM EDT BASIC METABOLIC PANEL CALCIUM TOTAL Routine 07/31/2024 8:50 AM EDT NICA (acute kidney injury) ([facility]) THYROID CASCADING REFLEX PANEL Routine 07/16/2024 3:42 PM EDT Examination, medical, general Essential hypertension, benign Hypothyroidism (acquired) LIPID PANEL Routine 07/16/2024 3:42 PM EDT Examination, medical, general Essential hypertension, benign Hypothyroidism (acquired) HEPATITIS C ANTIBODY Routine 06/06/2018 9:50 AM EDT Hypothyroidism (acquired) Lumbar disc disease from Last 3 Months or Most Recently Relevant to Health Maintenance Results * OTHER ORDERS SCANNED DOCUMENT (09/25/2024 3:00 AM EST) Only the most recent of4 resultswithin the time period is included. 09/25/2024 3:00 AM EST Francoise Wong PA-C SCAN OTHER ORDERS Final Resu lt * (ABNORMAL) BASIC METABOLIC PANEL CALCIUM TOTAL (07/31/2024 8:50 AM EDT) GLUCOSE 105(H) 65 - 99 mg/dL [employer] Comment: ?Fasting reference interval For someone without known diabetes, a glucose value between 100 and 125 mg/dL is consistent with prediabetes and should be confirmed with a follow-up test. UREA NITROGEN (BUN) 23 7 - 25 mg/dL [employer] CREATININE (blood) 1.19 0.70 - 1.28 mg/dL [employer] EGFR 64 > OR = 60 mL/min/1. 73m2 [employer] BUN/CREATININE RATIO SEE NOTE: [employer] Comment: ?? Not Reported: BUN and Creatinine are within ?? reference range. ? SODIUM 139 135 - 146 mmol/L [employer] POTASSIUM 4.5 3.5 - 5.3 mmol/L [employer] CHLORIDE 103 98 - 110 mmol/L [employer] CARBON DIOXIDE 27 20 - 32 mmol/L [employer] CALCIUM 10.3 8.6 - 10.3 mg/dL [employer] Blood Blood / Unknown 07/31/2024 8 :50 AM EDT 07/31/2024 8:50 AM EDT Narrative [employer] - 08/01/2024 6:09 AM EDT FASTING:YES Ankit Almaraz [employer] [facility] [facility] - BLOOD DRAW Final Re sult [facility] [address] [address], [employer] [facility] [address] [place] [address] * THYROID CASCADING REFLEX PANEL (07/16/2024 3:42 PM EDT) TSH 2.76 0.40 - 4.50 mIU/L [employer] [facility] Blood Blood / Unknown 07/16/2024 3 :42 PM EDT 07/16/2024 3:43 PM EDT Ankit Almaraz [facility] - BLOOD DRAW Edited R esult - Final [employer] [facility] [address] [address], [employer] [facility] [address] [place] [address] * (ABNORMAL) LIPID PANEL (07/16/2024 3:42 PM EDT) [facility] CHOLESTEROL, TOTAL 203(H) <200 mg/dL [employer] [facility] HDL CHOLESTEROL 40 > OR = 40 mg/dL [employer] [facility] TRIGLYCERIDES 176(H) <150 mg/dL [employer] [facility] LDL-CHOLESTEROL 132(H) 99 mg/dL (calc) [employer] [facility] Comment: Reference range: <100 Desirable range <100 mg/dL for primary prevention; ?? <70 mg/dL for patients with CHD or diabetic patients with > or = 2 CHD risk factors. LDL-C is now calculated using the Andre-Brett calculation, which is a validated novel method providing better accuracy than the Friedewald equation in the estimation of LDL-C. Andre RIVERA et al. WILMER. 2013;310(19): 5189-1385 (http://education.[employer].Dianxin/faq/OPC233) CHOL/HDLC RATIO 5.1(H) <5.0 (calc) [employer] [facility] NON-HDL CHOLESTEROL 163(H) <130 mg/dL (calc) [employer] [facility] Comment: For patients with diabetes plus 1 major ASCVD risk factor, treating to a non-HDL-C goal of <100 mg/dL (LDL-C of <70 mg/dL) is considered a therapeutic option. Blood Blood / Unknown 07/16/2024 3 :42 PM EDT 07/16/2024 3:43 PM EDT Ankit Almaraz [facility] - BLOOD DRAW Final Re sult Performing Organization Address City/[facility]/ZIP Co de Phone Number [facility] [address] [address], [facility] [address] [place] [address] * HEPATITIS C ANTIBODY (06/06/2018 9:50 AM EDT) HEPATITIS C VIRUS SCREEN NEGATIVE NEGATIVE [facility] Blood specimen (specimen) Blood / Unknown 06/06/2018 9:50 AM EDT 06/06/2018 10:08 AM EDT Narrative [facility] - 06/06/2018 1:39 PM EDT [employer] [address] [place] [address] PT ID [id number] ORD# [id number] us Francoise Wong PA-C LAB - BLOOD DRAW Final Resul t [facility] [address] [place] [address], from Last 3 Months or Most Recently Relevant to Health Maintenance Insurance [place] [facility] - DENTAL Care Teams [employer] Relationship Specialty Start Date End Date Francoise Wong PA-C [address] [place] [id number] PCP - General Internal Medicine 04/07/15
--- OUTSIDE RECORDS SUMMARY | 2024-11-06 13:38 | XMS_ITS | Clinical Summary ---
Author Organization [facility] it Address [id number] [place] [id number] Care Team Providers Care Front Desk Assistant Name Role Phone Unavailable Primary Care Provider Unavailabl e Social History Tobacco Use Types Packs/Day Years Used Date Smoking Tobacco: Never Assessed Sex and Gender Information Value Date Recorded Sex Assigned at Not on file Gender Identity Not on file Sexual Orientation Not on file Plan of Treatment Health Maintenance Due Date Last Done Comments DTaP,Tdap,and Td Vaccines (1 - Tdap) 1967 Zoster Vaccines (1 of 2) 1998 Pneumococcal Vaccine: 65+ Ye ars (1 of 1 - PCV) 2013 Abdominal Aortic Aneurysm (A AA) Screen 09/12/2022 Cholesterol Screening (Lipid Panel) 09/12/2022 Colorectal Cancer Screening: Colonoscopy 09/12/2022 Depression Screening 09/12/2022 Falls Risk Assessment 09/12/2022 Hepatitis C Screening 09/12/2022 Social Influencers of Health Screening 09/12/2022 RSV Immunization Patients 60 + Years Old (1 - 1-dose 75+ series) 2023 COVID-19 Vaccine ( - 2023-2 5 season) 2024 Influenza Vaccine (#1) 2024 HIB Vaccines Aged Out No longer eligi ble based on patient's age to complete this topic HPV Vaccines Aged Out No longer eligi ble based on patient's age to complete this topic Hepatitis A Vaccines Aged Out No long er eligible based on patient's age to complete this topic Hepatitis B Vaccines Aged Out No long er eligible based on patient's age to complete this topic IPV Vaccines Aged Out No longer eligi ble based on patient's age to complete this topic MMR Vaccines Aged Out No longer eligi ble based on patient's age to complete this topic Meningococcal ACWY Vaccine Aged Out N o longer eligible based on patient's age to complete this topic RSV Immunization Patients Un mary 20 months Aged Out No longer eligible b ased on patient's age to complete this topic Varicella Vaccines Aged Out No longer eligible based on patient's age to complete this topic
[2024-11-06 14:24] VITALS: BP 150/87; PULSE 68; RESP 18; TEMP 36.5; O2SAT 100
== END 2024-11-06 14:25 | disposition home or self-care (01) ==
PROVIDERS: Emergency Provider Emergency Medicine; PCP Physician Assistant
DX: S70.01XA Contusion of right hip, initial encounter (principal); M54.50 Low back pain, unspecified; R10.2 Pelvic and perineal pain; M54.2 Cervicalgia; R51.9 Headache, unspecified; I10 Essential (primary) hypertension; W01.0XXA Fall on same level from slipping, tripping and stumbling without subsequent striking against object, initial encounter; Y93.9 Activity, unspecified; Y92.099 Unspecified place in other non-institutional residence as the place of occurrence of the external cause; Y99.8 Other external cause status
CPT/HCPCS: 70450; 72125; 73502; 99283; 99284

== ENCOUNTER → 2024-11-06 11:09 | Outpatient (BNV) | payer MEDICARE, SELFPAY | PROVIDERS: Emergency Provider Emergency Medicine; PCP Physician Assistant; Visit Provider Radiology Diagnostic Radiology | DX: M25.551 Pain in right hip (principal); S09.90XA Unspecified injury of head, initial encounter; M54.50 Low back pain, unspecified | CPT/HCPCS: 70450; 72125; 73502 ==